=== PATIENT | male | born 1965 | race Caucasian/White ===

== ENCOUNTER 2017-12-13 10:35 | Outpatient (CLI) | payer OTHER ==
[2017-12-13] MEDS ORDERED: ISOVUE-370 76%-LOCM 1 ML ONE (12:31)
--- NOTE | 2017-12-13 15:54 | CT ---
CT ANGIOGRAM OF CHEST WITH AND WITHOUT CONTRAST: Date: 12/13/17 HISTORY: 52-year-old male with I77.810 thoracic aortic ectasia. Chest pain. COMPARISON: None. TECHNIQUE: First, a noncontrast scan of the chest was performed. IV injection of iodinated contrast: 90 mL [id number]. Scan acquisition timing attempted to coincide with iodinated contrast bolus. 3D MIP reconstructions. FINDINGS: The thoracic aorta is ectatic and tortuous. Ascending thoracic aorta has fusiform ectasia with maximu m AP diameter of approximately 4.3 cm. The aortic arch has a diameter of approximately 2.5 cm. Descen ding thoracic aorta diameter is approximately 2.3 cm. There is no aortic dissection or rupture. No pulmonary thromboembolism. The lungs are clear of pulmonary edema, mass, and consolidation. No pleural effusion or pneumothorax. No mediastinal or hilar lymphadenopathy. There is no atherosclerotic calcification of the thoracic aorta or of the coronary arteries. There is no mediastinal or hilar lymphadenopathy. Trachea and major bronchi are patent and clear. No destructive osseous lesion identified. IMPRESSION: 1. Tortuosity of the aortic arch. 2. Ectasia of ascending thoracic aorta. 3. No aneurysm. 4. No aortic dissection. jn[] POS: [id number]
== END 2017-12-13 10:36 | disposition home or self-care (01) ==
LOC: BICCT 10:35
PROVIDERS: ATTEND Internal Medicine Cardiovascular Disease
DX: I77.810 Thoracic aortic ectasia (principal); Q25.46 Tortuous aortic arch
CPT/HCPCS: 71275